=== PATIENT | female | born 1965 | race African-American/Black ===

== ENCOUNTER 2017-09-28 10:35 | Emergency (ER) | payer BC ==
[~2017-09-28] VITALS: Ht 152.4 cm; Wt 86.0 kg
[2017-09-28 10:36] VITALS: BP 257/123; PULSE 82; RESP 18; TEMP 98.7; O2SAT 100
[2017-09-28] MEDS ORDERED: BP med PO (10:54)
[2017-09-28 10:55] VITALS: BP 226/108; PULSE 86; RESP 18; O2SAT 99
[2017-09-28] MEDS ORDERED: ACETAMINOPHEN 325 MG TAB PO ONE (11:15)
[2017-09-28] MEDS ORDERED: LABETALOL HCL 100 MG/20 ML VIAL IV PUSH ONE (11:15)
--- NOTE | 2017-09-28 11:34 | PD ---
HPI Chief Complaint: Hypertension Time Seen by Provider: 11:01 Travel History International Travel<30 days: No Contact w/Intl Traveler<30days: No Traveled to known affect area: No History of Present Illness HPI 52-year-old female presents by private vehicle for evaluation of hypertension. 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 Initial blood pressure reading in triage is 257/123. The patient does note that she has a frontal headache which she describes as a head pressure , rates it as a 6 out of 10, which started warning has been coming and going. She denies blurred vision, weakness, chest pain or shortness of breath, palpitations, nausea or vomiting, abdominal pain. She does report a history of hypertension and takes one antihypertensive medication. She does not remember the name and says that there is no way to find the name of this medication. She reports that she did not take it this morning because she forgot to. She reports that she occasionally checks her blood pressure and it is usually in the 180s systolic. She reports that she has a primary care physician, Dr. Oropeza, in [place]. She denies any other significant past medical history. No other complaints at this time. [facility] Past Medical History Hypertension: Yes ?: Unknown LMP: august 2017 Past Surgical History Surgical History: No Previous Surgery Social History Alcohol Use: No Tobacco Use: No Substance Use: No Allergies-Medications (Allergen,Severity, Reaction): Coded Allergies: No Known Allergies (Unverified , 09/28/17) Reported Meds & Prescriptions Reported Meds & Active Scripts Active Potassium Chloride ER (Potassium Chloride) 20 Meq Tab 20 Meq PO BID 3 Days Reported [BP med ] PO DAILY Review of Systems Except as stated in HPI: all other systems reviewed are Neg Physical Exam Narrative GENERAL: Well-developed well-nourished female in no acute distress SKIN: Warm and dry. HEAD: Atraumatic. Normocephalic. EYES: Pupils equal and round. No scleral icterus. No injection or drainage. ENT: No nasal bleeding or discharge. Mucous membranes pink and moist. NECK: Trachea midline. No JVD. CARDIOVASCULAR: Regular rate and rhythm. No murmur appreciated. RESPIRATORY: No accessory muscle use. Clear to auscultation. Breath sounds equal bilaterally. GASTROINTESTINAL: Abdomen soft, non-tender, nondistended. Hepatic and splenic margins not palpable. MUSCULOSKELETAL: No obvious deformities. No clubbing. No cyanosis. No edema. NEUROLOGICAL: Awake and alert. No obvious cranial nerve deficits. Motor grossly within normal limits. Normal speech. PSYCHIATRIC: Appropriate mood and affect; insight and judgment normal. Data Data Last Documented VS Vital Signs Date Time Temp Pulse Resp B/P (MAP) Pulse Ox O2 Delivery O2 Flow Rate FiO2 09/28/17 14:04 66 18 176/85 (115) 97 Room Air 09/28/17 10:36 98.7 Orders Orders Complete Blood Count With Diff (09/28/17 11:08) Basic Metabolic Panel (Bmp) (09/28/17 11:08) Electrocardiogram (09/28/17 ) Ct Brain W/O Iv Contrast(Rout) (09/28/17 ) Labetalol Inj (Trandate Inj) (09/28/17 11:15) Acetaminophen (Tylenol) (09/28/17 11:15) Ecg Monitoring (09/28/17 11:08) Iv Access Insert/Monitor (09/28/17 11:08) Clonidine (Catapres) (09/28/17 12:45) Potassium Chloride (Kcl) (09/28/17 12:45) Ed Discharge Order (09/28/17 14:09) Labs Laboratory Tests Test 09/28/17 11:20 White Blood Count 5.0 TH/MM3 Red Blood Count 5.19 MIL/MM3 Hemoglobin 12.2 GM/DL Hematocrit 38.0 % Mean Corpuscular Volume 73.1 FL Mean Corpuscular Hemoglobin 23.6 PG Mean Corpuscular Hemoglobin Concent 32.2 % Red Cell Distribution Width 14.0 % Platelet Count 351 TH/MM3 Mean Platelet Volume 8.0 FL Neutrophils (%) (Auto) 45.3 % Lymphocytes (%) (Auto) 42.1 % Monocytes (%) (Auto) 9.1 % Eosinophils (%) (Auto) 2.0 % Basophils (%) (Auto) 1.5 % Neutrophils # (Auto) 2.3 TH/MM3 Lymphocytes # (Auto) 2.1 TH/MM3 Monocytes # (Auto) 0.5 TH/MM3 Eosinophils # (Auto) 0.1 TH/MM3 Basophils # (Auto) 0.1 TH/MM3 CBC Comment DIFF FINAL Differential Comment Blood Urea Nitrogen 11 MG/DL Creatinine 0.75 MG/DL Random Glucose 94 MG/DL Calcium Level 8.7 MG/DL Sodium Level 138 MEQ/L Potassium Level 2.9 MEQ/L Chloride Level 102 MEQ/L Carbon Dioxide Level 30.6 MEQ/L Anion Gap 5 MEQ/L Estimat Glomerular Filtration Rate 99 ML/MIN [facility] Medical Decision Making Medical Screen Exam Complete: Yes Emergency Medical Condition: Yes Medical Record Reviewed: Yes Differential Diagnosis Medication noncompliance, essential hypertension, hypertensive urgency, hypertensive emergency, intracranial hemorrhage Narrative Course The patient was placed on ECG monitoring pulse oximetry. A 12-lead EKG was obtained. Plan is for basic labwork, CT of the brain. She will be given IV labetalol. Potassium 2.9, oral potassium chloride administered. Blood pressure improved. She is asymptomatic when ambulating. Headache resolved with Tylenol. She is stable for discharge and outpatient follow-up with a primary care physician. Diagnosis Primary Impression: Hypertension Additional Impression: Hypokalemia Additional Instructions: Medication as prescribed. Monitor blood pressure on a regular basis, keep a journal of these readings, follow-up with primary care physician next week. Return for any emergent medical conditions. Med/Other Pt SpecificInfo: Prescription(s) given Scripts Potassium Chloride ER (Potassium Chloride ER) 20 Meq Tab 20 MEQ PO BID for Electrolyte Replacement for 3 Days, #6 TAB 0 Refills Prov: Cyn Matamoros MD 09/28/17 Disposition: 01 DISCHARGE HOME Condition: Stable Azam Blunt Sep 28, 2017 11:34
[2017-09-28 11:36] VITALS: BP 196/91; PULSE 66; RESP 18; O2SAT 96
--- NOTE | 2017-09-28 11:37 | RADRPT ---
EXAM DATE/TIME: 09/28/2017 11:27 [place] COMPARISON: No previous studies available for comparison. INDICATIONS : Cephalgia. Hypertension. RADIATION DOSE: 56.35 CTDIvol (mGy) MEDICAL HISTORY : Hypertension. SURGICAL HISTORY : None. ENCOUNTER: Initial ACUITY: 1 day PAIN SCALE: 7/10 LOCATION: cranial TECHNIQUE: Multiple contiguous axial images were obtained of the head. Using automated exposure control and adj ustment of the mA and/or kV according to patient size, radiation dose was kept as low as reasonably a chievable to obtain optimal diagnostic quality images. DICOM format image data is available electro nically for review and comparison. FINDINGS: CEREBRUM: The ventricles are normal for age. No evidence of midline shift, mass lesion, hemorrhage or acute in farction. No extra-axial fluid collections are seen. POSTERIOR FOSSA: The cerebellum and brainstem are intact. The 4th ventricle is midline. The cerebellopontine angle i s unremarkable. EXTRACRANIAL: The visualized portion of the orbits is intact. SKULL: The calvaria is intact. No evidence of skull fracture. CONCLUSION: Normal examination. Iggy Becerril MD on September 28, 2017 at 11:34 Board Certified Radiologist. This report was verified electronically.
[2017-09-28 11:53] LABS: AUTOMATED NEUTROPHIL # 2.3 TH/MM3 (1.8-7.7); BASOPHIL # 0.1 TH/MM3 (0-0.2); BASOPHIL % 1.5 % (0.0-2.0); EOSINOPHIL # 0.1 TH/MM3 (0-0.4); HEMOGLOBIN 12.2 GM/DL (11.6-15.3); LYMPH % 42.1 % (9.0-44.0); LYMPHOCYTE # 2.1 TH/MM3 (1.0-4.8); MEAN CELL VOLUME 73.1 FL (80.0-100.0); MEAN CORPUSCULAR HEMOGLOBIN 23.6 PG (27.0-34.0); MEAN CORPUSCULAR HGB CONC 32.2 % (32.0-36.0); MONO % 9.1 % (0.0-8.0); MONOCYTE # 0.5 TH/MM3 (0-0.9); NEUT % 45.3 % (16.0-70.0); PLATELET COUNT 351 TH/MM3 (150-450); RED BLOOD COUNT 5.19 MIL/MM3 (4.00-5.30)
[2017-09-28 12:18] LABS: BICARBONATE 30.6 MEQ/L (21.0-32.0); CALCIUM 8.7 MG/DL (8.5-10.1); CREATININE 0.75 MG/DL (0.50-1.00)
[2017-09-28 12:29] VITALS: BP 204/91; PULSE 60
[2017-09-28] MEDS ORDERED: POTASSIUM CHLORIDE 20 MEQ CONTROLLED RELEASE TAB PO ONE (12:45)
[2017-09-28] MEDS ORDERED: cloNIDine HCL 0.2 MG TAB PO ONE (12:45)
[2017-09-28] MEDS ORDERED: POTA-163 PO (12:55)
[2017-09-28 13:42] VITALS: BP 208/99; PULSE 66
[2017-09-28 14:04] VITALS: BP 176/85; PULSE 66; RESP 18; O2SAT 97
--- NOTE | 2017-09-29 13:06 | EKG ---
Date Performed: 09/28/2017 Time Performed: 11:12:42 PTAGE: 52 years EKG: Sinus rhythm SEPTAL MYOCARDIAL INFARCTION ABNORMAL ECG INTERPRETATION BASED ON A DEFAULT AGE OF 40 YEARS NO PREVIOUS TRACING DOCTOR: Chaparro Mondragon Interpretating Date/Time 09/29/2017 12:57:16
== END 2017-09-28 14:28 | disposition home or self-care (01) ==
LOC: NEPE 10:35
DX: I10 Essential (primary) hypertension (principal); E87.6 Hypokalemia
CPT/HCPCS: 70450; 80048; 85025; 93005; 96374